=== PATIENT | female | born 1985 | race Caucasian/White ===

== ENCOUNTER 2017-03-29 09:56 | Day surgery (SDC) | payer BC ==
[~2017-03-29 09:56] MED LIST: Lactated Ringers 1,000 ML IV SCH
--- NOTE | 2017-03-29 11:16 | PCM.PREANE ---
Preanesthetic Assessment - Anesthesia/Transfusion/Family Hx Anesthesia History: Prior Anesthesia Reaction (slow awakening and shaking after anesthesia) Family History of Anesthesia Reaction: No Transfusion History: No Prior Transfusion(s) - Review of Systems General: No Symptoms Pulmonary: Cough (from the GERD?) Cardiovascular: No Symptoms Gastrointestinal: No Symptoms Neurological: No Symptoms Other: Reports: None - Physical Assessment NPO Status Date: 03/28/17 NPO Status Time: 23:00 O2 Sat by Pulse Oximetry: 97 Respiratory Rate: 16 Vital Signs: Last Vital Signs Temp 36.8 C 03/29/17 10:14 Pulse 88 03/29/17 10:14 Resp 16 03/29/17 10:14 BP 111/57 L 03/29/17 10:14 Pulse Ox 97 03/29/17 10:14 Height: 1.65 m Weight: 120.202 kg ASA Class: 3 Mental Status: Alert & Oriented x3 Airway Class: Mallampati = 2 Dentition: Reports: Broken Tooth/Teeth, Caries ROM/Head Extension: Full Lungs: Clear to Auscultation, Normal Respiratory Effort Cardiovascular: Regular Rate, Regular Rhythm - Lab Values: Laboratory Last Values Urine HCG, Qual NEGATIVE (NEGATIVE) 03/29/17 10:01 - Allergies Allergies/Adverse Reactions: Allergies Allergy/AdvReac Type Severity Reaction Status Date / Time No Known Allergies Allergy Verified 03/25/17 09:31 - Acknowledgements Anesthesia Type Planned: MAC Pt an Appropriate Candidate for the Planned Anesthesia: Yes Alternatives and Risks of Anesthesia Discussed w Pt/Guardian: Yes Pt/Guardian Understands and Agrees with Anesthesia Plan: Yes Additional Comments: PMH: morbid obesity, migraine, DM2, PCOS, anxiety, GERD, renal stones, chronic cough perhaps from her GERD. 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: Polycystic Ovaries Musculoskeletal History: Reports: Fracture Other Musculoskeletal History: hx of fx foot Neurological History: Reports: Other (See Below) Other Neuro History: 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" Psychiatric History: Reports: Anxiety, PTSD Endocrine/Metabolic History: Reports: Obesity/BMI 30+ Other Endocrine/Metabolic History: diet controlled diabetic Hematologic History: Reports: None Immunologic History: Reports: None Oncologic (Cancer) History: Reports: None Dermatologic History: Reports: None - Infectious Disease History Infectious Disease History: Reports: None - Past Surgical History Head Surgeries/Procedures: Reports: None HEENT Surgical History: Reports: Naso-Sinus Surgery Female Surgical History: Reports: Other (See Below) Other Female Surgeries/Procedures: Cystoscopy with stent insertion & stent removal Musculoskeletal Surgical History: Reports: None - SUBSTANCE USE Smoking Status *Q: Never Smoker Days Per Week of Alcohol Use: 0 Recreational Drug Use History: No - HOME MEDS Home Medications: Home Meds Ziprasidone HCl [Geodon] 40 mg PO BEDTIME 09/14/14 [History] Melatonin 5 mg PO BEDTIME 07/07/15 [History] Cholecalciferol (Vitamin D3) [Vitamin D] 2,000 unit PO DAILY 07/07/16 [History] ClonazePAM [KlonoPIN] 0.5 mg PO TID PRN 07/07/16 [History] Cyanocobalamin (Vitamin B12) [Vitamin B12] 2,500 mcg SL DAILY 07/07/16 [History] Vitamin B Complex 1 cap PO DAILY 07/07/16 [History] busPIRone [Buspar] 15 mg PO BID 07/07/16 [History] Benztropine [Cogentin] 1 mg PO BID 09/01/16 [History] Magnesium 400 mg PO BID 09/01/16 [History] Vitamin B6-pyridOXINE [Vitamin B6] 100 mg PO QAM 10/11/16 [History] Albuterol [IJD: Albuterol HFA] 1 puff INH ASDIRECTED PRN 03/25/17 [History] Pantoprazole Sodium [Protonix] 20 mg PO BID 03/25/17 [History] Potassium Chloride [Klor-Con M15] 15 meq PO DAILY 03/25/17 [History] - CURRENT (IN HOUSE) MEDS Current Meds: Current Medications Lactated Ringer's (Ringers, Lactated) 1,000 mls @ 125 mls/hr IV ASDIRECTED KENNEDY Last Admin: 03/29/17 10:15 Dose: 125 mls/hr
[2017-03-29] MEDS ORDERED: Propofol 200 MG/20 ML SDV ONE ×2 (12:16→13:06)
[2017-03-29] MEDS ORDERED: fentaNYL 100 MCG/2 ML SDV ONE (12:16)
[2017-03-29] MEDS ORDERED: Lidocaine 2% 5 ML SDV ONE (12:16)
[2017-03-29] MEDS ORDERED: Midazolam 1 MG/ML 2 ML SDV ONE (12:16)
--- NOTE | 2017-03-29 13:39 | PCM.OPNOTE ---
- General Post-Op/Procedure Note Date of Surgery/Procedure: 03/29/17 Operative Procedure(s): EGD w/ biopsy. Colonoscopy Pre Op Diagnosis: Progressive heartburn. Intermittent rectal bleeding Post-Op Diagnosis: Gastritis. Sigmoid diverticulosis Anesthesia Technique: MAC (ASA II) Primary Surgeon: Cash Manzo Condition: Good Free Text/Narrative:: Dictation [id number]. CPT CODE 84089/43980
[2017-03-29] MEDS ORDERED: Lactated Ringers 1,000 ML IV SCH (13:45)
[2017-03-29 14:07] VITALS: BP 119/77
--- NOTE | 2017-03-29 14:39 | PCM48HPAN ---
Post Anesthesia Note - EVALUATION WITHIN 48HRS OF ANESTHETIC Vital Signs in Normal Range: Yes Patient Participated in Evaluation: Yes Respiratory Function Stable: Yes Airway Patent: Yes Cardiovascular Function Stable: Yes Hydration Status Stable: Yes Pain Control Satisfactory: Yes Nausea and Vomiting Control Satisfactory: Yes Mental Status Recovered: Yes
--- NOTE | 2017-03-29 14:39 | PCM.POSTAN ---
POST ANESTHESIA ASSESSMENT - MENTAL STATUS Mental Status: Alert, Oriented - RESPIRATORY Respiratory Status: Respiratory Rate WNL, Airway Patent, O2 Saturation Stable - CARDIOVASCULAR CV Status: Pulse Rate WNL, Blood Pressure Stable - GASTROINTESTINAL GI Status: No Symptoms - POST OP HYDRATION Hydration Status: Adequate & Stable
--- NOTE | 2017-03-29 19:02 | OR ---
SURGEON: Cash Manzo M.D. DATE OF PROCEDURE: 03/29/2017 OPERATION PERFORMED: Esophagogastroduodenoscopy with biopsy. ANESTHESIA: MAC. ASA CLASSIFICATION: III. PREOPERATIVE DIAGNOSIS: Chronic heartburn progressive gastroesophageal reflux disease. POSTOPERATIVE DIAGNOSIS: Gastritis. DESCRIPTION OF PROCEDURE: The patient was taken to the endoscopy room and positioned on the endoscopy table in the supine position. Time-out was called for appropriate identification of patient and procedure. Monitored anesthesia care was provided. The bite block was placed between the patient's teeth. The gastroscope was inserted through the bite block into the mouth and advanced without difficulty through the esophagus and stomach, into the duodenum, where examination was carried out in a retrograde fashion. The duodenum shows no acute inflammatory changes or ulcerations. The stomach does show mild-to- moderate gastritis. Antral biopsies were obtained to look for the presence of Helicobacter pylori. The gastroscope was retroflexed to visualize the proximal stomach. No significant hiatal hernia was noted. No lesions are seen in the proximal stomach. The gastroscope was then straightened and slowly withdrawn. GE junction was well defined and shows no acute inflammatory changes or ulcerations. The esophagus demonstrated good contractility. As the scope was withdrawn, the vocal cords were visualized and noted to move symmetrically. There does appear to be some edema in the hypopharynx. The gastroscope was then removed with the patient having tolerated this portion of the procedure well. Following colonoscopy, she was taken to recovery room in stable condition. ARAM HUMMEL /[id number]
--- NOTE | 2017-03-29 19:05 | OR ---
SURGEON: Cash Manzo M.D. DATE OF PROCEDURE: 03/29/2017 OPERATION PERFORMED: Colonoscopy. ANESTHESIA: MAC. ASA CLASSIFICATION: III. PREOPERATIVE DIAGNOSIS: Intermittent rectal bleeding. POSTOPERATIVE DIAGNOSIS: Mild sigmoid diverticulosis. DESCRIPTION OF PROCEDURE: With the patient having completed esophagogastroduodenoscopy with biopsy, she was now turned to the left lateral decubitus position. The colonoscope was inserted into the rectum and advanced without difficulty to the cecum where the colonoscope was retroflexed to visualize the ascending colon from below. The colonoscope was then straightened and slowly withdrawn. The cecum, ascending colon, hepatic flexure, transverse colon, splenic flexure, and descending colon showed no tumors, polyps, diverticula, or angiodysplastic changes. Sigmoid colon demonstrated a few scattered diverticula. No stricture, spasm, or bleeding was noted. The colonoscope was withdrawn to the rectum and retroflexed to visualize the anal orifice from above. No acute hemorrhoidal changes were noted. The colonoscope was then straightened, the rectum aspirated, and the colonoscope removed. ARAM HUMMEL /[id number]
== END 2017-03-29 14:15 | disposition home or self-care (01) ==
LOC: MW.SDS 09:56
PROVIDERS: ATTEND Surgery
PROC: 0DJD8ZZ Inspection of Lower Intestinal Tract, Via Natural or Artificial Opening Endoscopic (ICD-10-PCS; principal; 2017-03-29)
PROC: 0DB68ZX Excision of Stomach, Via Natural or Artificial Opening Endoscopic, Diagnostic (ICD-10-PCS; 2017-03-29)
DX: K57.30 Diverticulosis of large intestine without perforation or abscess without bleeding (principal); K21.9 Gastro-esophageal reflux disease without esophagitis; F41.9 Anxiety disorder, unspecified; E66.9 Obesity, unspecified; E11.9 Type 2 diabetes mellitus without complications; E28.2 Polycystic ovarian syndrome; Z87.442 Personal history of urinary calculi; Z79.51 Long term (current) use of inhaled steroids; Z79.899 Other long term (current) drug therapy; Z98.890 Other specified postprocedural states; Z68.41 Body mass index [BMI] 40.0-44.9, adult
CPT/HCPCS: 43239; 45378; 81025; J2250; J3010; J7120; 00740; 88305; 88312; J2704

== ENCOUNTER 2017-04-27 20:31 | Emergency (ER) | payer BC, OTHER ==
[2017-04-27 20:41] VITALS: BP 160/94
--- NOTE | 2017-04-27 21:49 | EDM.PDOC ---
ED HPI GENERAL MEDICAL PROBLEM - General Chief Complaint: Cardiovascular Problem Stated Complaint: HIGH BLOOD PRESSURE Time Seen by Provider: 04/27/17 21:00 Source of Information: Reports: Patient History Limitations: Reports: No Limitations - History of Present Illness INITIAL COMMENTS - FREE TEXT/NARRATIVE: History of present illness: [32-year-old female comes in complaining of concerns of high blood pressure. Patient states she took her blood pressure home and it was high, she has felt some dizziness and feelings of pressure all over her body. Patient has been struggling with a cold and has been taking quite them bit of [id number] medication and is afraid she might have overdosed on Tylenol she is unable to determine how much she has taken. Patient has known anxiety disorder and takes medication for this and patient indicates this has triggered her anxiety. Patient can't remember what her blood pressure reading was but she indicated the bottom number was 105. Patient borderline hypertension on presentation. Review of systems: As per history of present illness and below otherwise all systems reviewed and negative. Past medical history: As per history of present illness and as reviewed below otherwise noncontributory. Surgical history: As per history of present illness and as reviewed below otherwise noncontributory. Social history: No reported history of drug or alcohol abuse. Family history: As per history of present illness and as reviewed below otherwise noncontributory. Physical exam: HEENT: Atraumatic, normocephalic, pupils reactive, negative for conjunctival pallor or scleral icterus, mucous membranes moist, throat clear, neck supple, nontender, trachea midline. Lungs: Clear to auscultation, breath sounds equal bilaterally, chest nontender. Heart: S1S2, regular, negative for clicks, rubs, or JVD. Abdomen: Soft, nondistended, nontender. Negative for masses or hepatosplenomegaly. Negative for costovertebral tenderness. Pelvis: Stable nontender. Genitourinary: Deferred. Rectal: Deferred. Extremities: Atraumatic, negative for cords or calf pain. Neurovascular unremarkable. Neuro: Awake, alert, oriented. Cranial nerves II through XII unremarkable. Cerebellum unremarkable. Motor and sensory unremarkable throughout. Exam nonfocal. Global assessment is benign save the subjective complaint as noted in the history of present illness Diagnostics: [CBC, CMP, EKG, amylase, lipase, acetaminophen level] Therapeutics: [] Impression: [#1 Anxiety #2 viral syndrome #3 Borderline hypertension] Plan: [Follow-up with PCP] Definitive disposition and diagnosis as appropriate pending reevaluation and review of above. - Related Data Allergies Allergy/AdvReac Type Severity Reaction Status Date / Time No Known Allergies Allergy Verified 04/27/17 20:38 Home Meds: Home Meds Ziprasidone HCl [Geodon] 40 mg PO BEDTIME 09/14/14 [History] Melatonin 5 mg PO BEDTIME 07/07/15 [History] Cholecalciferol (Vitamin D3) [Vitamin D] 2,000 unit PO DAILY 07/07/16 [History] ClonazePAM [KlonoPIN] 0.5 mg PO TID PRN 07/07/16 [History] Cyanocobalamin (Vitamin B12) [Vitamin B12] 2,500 mcg SL DAILY 07/07/16 [History] Vitamin B Complex 1 cap PO DAILY 07/07/16 [History] busPIRone [Buspar] 15 mg PO BID 07/07/16 [History] Benztropine [Cogentin] 1 mg PO BID 09/01/16 [History] Magnesium 400 mg PO BID 09/01/16 [History] Vitamin B6-pyridOXINE [Vitamin B6] 100 mg PO QAM 10/11/16 [History] Albuterol [IJD: Albuterol HFA] 1 puff INH ASDIRECTED PRN 03/25/17 [History] Pantoprazole Sodium [Protonix] 20 mg PO BID 03/25/17 [History] Potassium Chloride [Klor-Con M15] 15 meq PO DAILY 03/25/17 [History] Past Medical History - Past Health History Medical/Surgical History: Denies Medical/Surgical History HEENT History: Reports: Impaired Vision Other HEENT History: wears glasses Cardiovascular History: Reports: None Respiratory History: Reports: Asthma, Other (See Below) Other Respiratory History: chronic cough from GERD, uses albuterol inhaler Gastrointestinal History: Reports: GERD Genitourinary History: Reports: Renal Calculus Other Genitourinary History: surgery done in [place] for kidney stones 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: Polycystic 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 Musculoskeletal History: Reports: Fracture Other Musculoskeletal History: hx of fx foot Neurological History: Reports: Other (See Below) Other Neuro History: 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" Psychiatric History: Reports: Anxiety, PTSD Endocrine/Metabolic History: Reports: Obesity/BMI 30+ Other Endocrine/Metabolic History: diet controlled diabetic Hematologic History: Reports: None Immunologic History: Reports: None Oncologic (Cancer) History: Reports: None Dermatologic History: Reports: None - Infectious Disease History Infectious Disease History: Reports: Chicken Pox - Past Surgical History Head Surgeries/Procedures: Reports: None HEENT Surgical History: Reports: Naso-Sinus Surgery Female Surgical History: Reports: Other (See Below) Other Female Surgeries/Procedures: Cystoscopy with stent insertion & stent removal Musculoskeletal Surgical History: Reports: None Social & Family History - Family History Family Medical History: Noncontributory - Tobacco Use Smoking Status *Q: Never Smoker - Caffeine Use Caffeine Use: Reports: None - Alcohol Use Days Per Week of Alcohol Use: 0 - Recreational Drug Use Recreational Drug Use: No Drug Use in Last 12 Months: No ED ROS GENERAL - Review of Systems Review Of Systems: See Below (See history of present illness) ED EXAM, GENERAL - Physical Exam Exam: See Below (See history of present illness) Course - Vital Signs Last Recorded V/S: Last Vital Signs Temp 36.4 C 04/27/17 20:38 Pulse 84 04/27/17 20:38 Resp 18 04/27/17 20:38 BP 160/94 H 04/27/17 20:38 Pulse Ox 97 04/27/17 20:38 - Orders/Labs/Meds Labs: Laboratory Tests 04/27/17 04/27/17 Range/Units 21:18 21:18 WBC 12.44 H (4.0-11.0) K/uL RBC 4.84 (4.30-5.90) M/uL Hgb 14.9 (12.0-16.0) g/dL Hct 42.1 (36.0-46.0) % MCV 87.0 (80.0-98.0) fL MCH 30.8 (27.0-32.0) pg MCHC 35.4 (31.0-37.0) g/dL RDW Std Deviation 43.7 (28.0-62.0) fl RDW Coeff of José Miguel 14 (11.0-15.0) % Plt Count 336 (150-400) K/uL MPV 8.70 (7.40-12.00) fL Neut % (Auto) 64.9 (48.0-80.0) % Lymph % (Auto) 29.3 (16.0-40.0) % Sabine % (Auto) 5.1 (0.0-15.0) % Eos % (Auto) 0.6 (0.0-7.0) % Baso % (Auto) 0.1 (0.0-1.5) % Neut # (Auto) 8.1 H (1.4-5.7) K/uL Lymph # (Auto) 3.7 H (0.6-2.4) K/uL Sabine # (Auto) 0.6 (0.0-0.8) K/uL Eos # (Auto) 0.1 (0.0-0.7) K/uL Baso # (Auto) 0.0 (0.0-0.1) K/uL Nucleated RBC % 0.0 /100WBC Nucleated RBCs # 0 K/uL Sodium 140 (136-146) mmol/L Potassium 3.8 (3.5-5.1) mmol/L Chloride 109 (98-110) mmol/L Carbon Dioxide 20 L (21-31) mmol/L BUN 7 (6.0-23.0) mg/dL Creatinine 0.7 (0.6-1.5) mg/dL Est Cr Clr Drug Dosing 104.78 mL/min Estimated GFR (MDRD) > 60.0 ml/min Glucose 95 (60-110) mg/dL Calcium 9.2 (8.8-10.8) mg/dL Total Bilirubin 0.4 (0.1-1.5) mg/dL AST 38 (5-40) IU/L ALT 60 H (8-54) IU/L Alkaline Phosphatase 65 (40-150) Total Protein 7.5 (6.0-8.0) g/dL Albumin 3.8 (3.5-5.0) g/dL Globulin 3.7 H (2.0-3.5) g/dL Albumin/Globulin Ratio 1.0 L (1.3-2.8) Amylase 47 (10-90) U/L Lipase 20 (7-80) U/L Acetaminophen 3.6 ug/mL Departure - Departure Time of Disposition: 22:18 Disposition: Home, Self-Care 01 Condition: Good Clinical Impression: Anxiety, Hypertensive heart disease, Viral syndrome Referrals: Neema Pena NP [Primary Care Provider] - Forms: ED Department Discharge Additional Instructions: The following information is given to patients seen in the emergency department who are being discharged to home. This information is to outline your options for follow-up care. We provide all patients seen in our emergency department with a follow-up referral. The need for follow-up, as well as the timing and circumstances, are variable depending upon the specifics of your emergency department visit. If you don't have a primary care physician on staff, we will provide you with a referral. We always advise you to contact your personal physician following an emergency department visit to inform them of the circumstance of the visit and for follow-up with them and/or the need for any referrals to a consulting specialist. The emergency department will also refer you to a specialist when appropriate. This referral assures that you have the opportunity for follow-up care with a specialist. All of these measure are taken in an effort to provide you with optimal care, which includes your follow-up. Under all circumstances we always encourage you to contact your private physician who remains a resource for coordinating your care. When calling for follow-up care, please make the office aware that this follow-up is from your recent emergency room visit. If for any reason you are refused follow-up, please contact the [facility] Emergency Department at and asked to speak to the emergency department charge nurse. Take your [id number] cold remedies as directed by the package and no more be aware that he should take no more than 4 g of Tylenol from all sources a day or within a 24-hour period Follow-up with your PCP 1-2 days It is imperative that you have your PCP evaluate your blood pressure and give you interventions accordingly Return to ED as needed as discussed
[2017-04-27 21:54] LABS: ACETAMINOPHEN 3.6 ug/mL; CHLORIDE,CL 109 mmol/L (98-110); SODIUM,NA 140 mmol/L (136-146)
== END 2017-04-27 22:43 | disposition home or self-care (01) ==
LOC: MW.ED 20:31
DX: I11.9 Hypertensive heart disease without heart failure (principal); B34.9 Viral infection, unspecified; F41.9 Anxiety disorder, unspecified; J45.909 Unspecified asthma, uncomplicated; K21.9 Gastro-esophageal reflux disease without esophagitis; E66.9 Obesity, unspecified; Z98.890 Other specified postprocedural states; Z79.899 Other long term (current) drug therapy; Z68.41 Body mass index [BMI] 40.0-44.9, adult
CPT/HCPCS: 36415; 80053; 82150; 83690; 85025; 99284; G0480; 99283

== ENCOUNTER 2017-07-06 14:38 | Emergency (ER) | payer OTHER ==
--- NOTE | 2017-07-06 14:43 | EDM.PDOC ---
ED HPI GENERAL MEDICAL PROBLEM - General Chief Complaint: Chest Pain Stated Complaint: CHEST PAIN Time Seen by Provider: 07/06/17 14:43 Source of Information: Reports: Patient - History of Present Illness INITIAL COMMENTS - FREE TEXT/NARRATIVE: HISTORY AND PHYSICAL: History of present illness: []Patient with history of anxiety presents with chest pain off-and-on low-grade over the last 3 days 2 out of 10 pain no association with diaphoresis shortness of breath or radiation arm neck or jaw She has recently been diagnosed with a slight 2/6 systolic murmur and had 2-D echo performed at [facility] she will be following with cardiology concerning this in one month No fever nausea vomiting chills sweats no current chest pain shortness breath headache dizziness or palpitation no bowel or urine symptoms . Review of systems: As per history of present illness and below otherwise all systems reviewed and negative. Past medical history: As per history of present illness and as reviewed below otherwise noncontributory. Surgical history: As per history of present illness and as reviewed below otherwise noncontributory. Social history: No reported history of drug or alcohol abuse. Family history: As per history of present illness and as reviewed below otherwise noncontributory. Physical exam: HEENT: Atraumatic, normocephalic, pupils reactive, negative for conjunctival pallor or scleral icterus, mucous membranes moist, throat clear, neck supple, nontender, trachea midline. Lungs: Clear to auscultation, breath sounds equal bilaterally, chest nontender. Heart: S1S2, regular, negative for clicks, rubs, or JVD. 2/6 systolic murmur left sternal border Abdomen: Soft, nondistended, nontender. Negative for masses or hepatosplenomegaly. Negative for costovertebral tenderness. Pelvis: Stable nontender. Genitourinary: Deferred. Rectal: Deferred. Extremities: Atraumatic, negative for cords or calf pain. Neurovascular unremarkable. Neuro: Awake, alert, oriented. Cranial nerves II through XII unremarkable. Cerebellum unremarkable. Motor and sensory unremarkable throughout. Exam nonfocal. Diagnostics: []CBC CMP troponin EKG Therapeutics: []Continue current medication Impression: []2/6 systolic murmur-previously diagnosed with cardiology follow-up scheduled Chronic conditions at baseline Definitive disposition and diagnosis as appropriate pending reevaluation and review of above. Left Chest Pain Score (Numeric/FACES): 6 - Related Data Allergies Allergy/AdvReac Type Severity Reaction Status Date / Time No Known Allergies Allergy Verified 04/27/17 20:38 Home Meds: Home Meds Ziprasidone HCl [Geodon] 40 mg PO BEDTIME 09/14/14 [History] Melatonin 5 mg PO BEDTIME 07/07/15 [History] ClonazePAM [KlonoPIN] 0.5 mg PO TID PRN 07/07/16 [History] Vitamin B Complex 1 cap PO DAILY 07/07/16 [History] Magnesium 400 mg PO BID 09/01/16 [History] Vitamin B6-pyridOXINE [Vitamin B6] 100 mg PO QAM 10/11/16 [History] Albuterol [IJD: Albuterol HFA] 1 puff INH ASDIRECTED PRN 03/25/17 [History] Pantoprazole Sodium [Protonix] 20 mg PO BID 03/25/17 [History] Past Medical History - Past Health History Medical/Surgical History: Denies Medical/Surgical History HEENT History: Reports: Impaired Vision Other HEENT History: wears glasses Cardiovascular History: Reports: None Respiratory History: Reports: Asthma, Other (See Below) Other Respiratory History: chronic cough from GERD, uses albuterol inhaler Gastrointestinal History: Reports: GERD Genitourinary History: Reports: Renal Calculus Other Genitourinary History: surgery done in [place] for kidney stones per pt 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: Reports: Polycystic Ovaries Musculoskeletal History: Reports: Fracture Other Musculoskeletal History: hx of fx foot Neurological History: Reports: Other (See Below) Other Neuro History: 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" Psychiatric History: Reports: Anxiety, PTSD Endocrine/Metabolic History: Reports: Obesity/BMI 30+ Other Endocrine/Metabolic History: diet controlled diabetic Hematologic History: Reports: None Immunologic History: Reports: None Oncologic (Cancer) History: Reports: None Dermatologic History: Reports: None - Infectious Disease History Infectious Disease History: Reports: Chicken Pox - Past Surgical History Head Surgeries/Procedures: Reports: None HEENT Surgical History: Reports: Naso-Sinus Surgery Female Surgical History: Reports: Other (See Below) Other Female Surgeries/Procedures: Cystoscopy with stent insertion & stent removal Musculoskeletal Surgical History: Reports: None Social & Family History - Family History Family Medical History: Noncontributory - Tobacco Use Smoking Status *Q: Never Smoker - Caffeine Use Caffeine Use: Reports: None - Alcohol Use Days Per Week of Alcohol Use: 0 - Recreational Drug Use Recreational Drug Use: No Drug Use in Last 12 Months: No ED ROS GENERAL - Review of Systems Review Of Systems: ROS reveals no pertinent complaints other than HPI. ED EXAM, GENERAL - Physical Exam Exam: See Below Course - Vital Signs Last Recorded V/S: Last Vital Signs Temp 36.3 C 07/06/17 14:56 Pulse 90 07/06/17 14:56 Resp 14 07/06/17 14:56 BP 134/85 07/06/17 14:56 Pulse Ox 96 07/06/17 14:56 - Orders/Labs/Meds Orders: Active Orders 24 hr Category Date Time Status EKG 12 Lead [EKG Documentation Completion] [RC] STAT Care 07/06/17 14:43 Active COMPREHENSIVE METABOLIC PN,CMP [CHEM] Stat Lab 07/06/17 14:51 Results TROPONIN I [CHEM] Stat Lab 07/06/17 14:51 Results Labs: Laboratory Tests 07/06/17 07/06/17 Range/Units 14:51 14:51 WBC 13.37 H (4.0-11.0) K/uL RBC 4.78 (4.30-5.90) M/uL Hgb 14.4 (12.0-16.0) g/dL Hct 41.4 (36.0-46.0) % MCV 86.6 (80.0-98.0) fL MCH 30.1 (27.0-32.0) pg MCHC 34.8 (31.0-37.0) g/dL RDW Std Deviation 43.7 (28.0-62.0) fl RDW Coeff of José Miguel 14 (11.0-15.0) % Plt Count 361 (150-400) K/uL MPV 9.00 (7.40-12.00) fL Neut % (Auto) 75.4 (48.0-80.0) % Lymph % (Auto) 20.3 (16.0-40.0) % [place] % (Auto) 3.8 (0.0-15.0) % Eos % (Auto) 0.4 (0.0-7.0) % Baso % (Auto) 0.1 (0.0-1.5) % Neut # (Auto) 10.1 H (1.4-5.7) K/uL Lymph # (Auto) 2.7 H (0.6-2.4) K/uL [place] # (Auto) 0.5 (0.0-0.8) K/uL Eos # (Auto) 0.1 (0.0-0.7) K/uL Baso # (Auto) 0.0 (0.0-0.1) K/uL Nucleated RBC % 0.0 /100WBC Nucleated RBCs # 0 K/uL Troponin I < 0.10 (0.0-0.29) NG/ML Departure - Departure Time of Disposition: 15:20 Disposition: Home, Self-Care 01 Condition: Good Clinical Impression: Systolic murmur - Discharge Information Forms: ED Department Discharge Additional Instructions: Continue current home medications as directed Return if symptoms persist or worsen or new concerning symptoms develop Follow-up with cardiology as scheduled at the end of the month Follow-up with primary care in the interim as needed The following information is given to patients seen in the emergency department who are being discharged to home. This information is to outline your options for follow-up care. We provide all patients seen in our emergency department with a follow-up referral. The need for follow-up, as well as the timing and circumstances, are variable depending upon the specifics of your emergency department visit. If you don't have a primary care physician on staff, we will provide you with a referral. We always advise you to contact your personal physician following an emergency department visit to inform them of the circumstance of the visit and for follow-up with them and/or the need for any referrals to a consulting specialist. The emergency department will also refer you to a specialist when appropriate. This referral assures that you have the opportunity for follow-up care with a specialist. All of these measure are taken in an effort to provide you with optimal care, which includes your follow-up. Under all circumstances we always encourage you to contact your private physician who remains a resource for coordinating your care. When calling for follow-up care, please make the office aware that this follow-up is from your recent emergency room visit. If for any reason you are refused follow-up, please contact the [facility] emergency department at and asked to speak to the emergency department charge nurse. - My Orders Last 24 Hours: My Active Orders 07/06/17 14:43 EKG 12 Lead [EKG Documentation Completion] [RC] STAT 07/06/17 14:51 COMPREHENSIVE METABOLIC PN,CMP [CHEM] Stat TROPONIN I [CHEM] Stat - Assessment/Plan Last 24 Hours: My Active Orders 07/06/17 14:43 EKG 12 Lead [EKG Documentation Completion] [RC] STAT 07/06/17 14:51 COMPREHENSIVE METABOLIC PN,CMP [CHEM] Stat TROPONIN I [CHEM] Stat
[2017-07-06 15:24] LABS: CHLORIDE,CL 105 mmol/L (98-110); SODIUM,NA 138 mmol/L (136-146)
[2017-07-06 16:35] VITALS: BP 133/83
--- NOTE | 2017-07-06 16:42 | CR ---
EXAM DATE: 07/06/17 PATIENT'S AGE: 32 Patient: VEENA ANDERSON Facility: [place], [place] Site . Site : 1985 Study: XRay Chest ,[id number]/14/2017 4:00:37 PM Ordering Physician: Davie Adair Final Report: INDICATION: COUGH TECHNIQUE: Chest 2 views COMPARISON: November 06, 2013 FINDINGS: Cardiovascular and mediastinum: Heart size and vasculature are normal in caliber and appearance. Mediastinum is within normal limits. Lungs and pleural spaces: No focal consolidation. No sign of pleural effusion. No pneumothorax. Bones and soft tissues: No significant findings. IMPRESSION: No acute cardiopulmonary disease. Dictated by Pawel Freeman MD @ 07/06/2017 4:06:07 PM Dictated by: Pawel Freeman MD @ 07/06/2017 16:06:16 (Electronic Signature) Report Signed by Proxy. [facility] HOSPITALSharona
== END 2017-07-06 16:35 | disposition home or self-care (01) ==
LOC: MW.ED 14:38
DX: R01.1 Cardiac murmur, unspecified (principal); Z79.899 Other long term (current) drug therapy
CPT/HCPCS: 36415; 71020; 71020-26; 80053; 84484; 85025; 93005; 99285; 99285-25

== ENCOUNTER 2018-03-03 22:07 | Emergency (ER) | payer SELFPAY ==
[2018-03-03] MEDS ORDERED: Sodium Chloride 0.9% 1,000 ML IV ONE (22:35)
[2018-03-03] MEDS ORDERED: Ondansetron 4 MG/2 ML SDV IVPUSH ONE (22:35)
[2018-03-03] MEDS ORDERED: Ketorolac 30 MG/ML SDV IVPUSH ONE (22:35)
--- NOTE | 2018-03-03 22:39 | EDM.PDOC ---
ED HPI GENERAL MEDICAL PROBLEM - General Chief Complaint: Flank Pain Stated Complaint: [facility] Time Seen by Provider: 03/03/18 22:34 - History of Present Illness INITIAL COMMENTS - FREE TEXT/NARRATIVE: HISTORY AND PHYSICAL: History of present illness: Patient is a 33-year-old female presents concern of right-sided abdominal pain scheme on 2 hours prior to arrival she has history of urolithiasis Review of systems: As per history of present illness and below otherwise all systems reviewed and negative. Past medical history: As per history of present illness and as reviewed below otherwise noncontributory. Surgical history: As per history of present illness and as reviewed below otherwise noncontributory. Social history: No reported history of drug or alcohol abuse. Family history: As per history of present illness and as reviewed below otherwise noncontributory. Physical exam: HEENT: Atraumatic, normocephalic, pupils reactive, negative for conjunctival pallor or scleral icterus, mucous membranes moist, throat clear, neck supple, nontender, trachea midline. Lungs: Clear to auscultation, breath sounds equal bilaterally, chest nontender. Heart: S1S2, regular, negative for clicks, rubs, or JVD. Abdomen: Soft, nondistended, no localized tenderness. Negative for masses or hepatosplenomegaly. Negative for costovertebral tenderness. Pelvis: Stable nontender. Genitourinary: Deferred. Rectal: Deferred. Extremities: Atraumatic, negative for cords or calf pain. Neurovascular unremarkable. Neuro: Awake, alert, oriented. Cranial nerves II through XII unremarkable. Cerebellum unremarkable. Motor and sensory unremarkable throughout. Exam nonfocal. Diagnostics: CBC CMP UA lipase CT abdomen and pelvis Therapeutics: Saline 1 L bolus Toradol 30 mg IV Impression: #1 right-sided abdominal pain Definitive disposition and diagnosis as appropriate pending reevaluation and review of above. Right Abdomen Pain Score (Numeric/FACES): 8 - Related Data Allergies Allergy/AdvReac Type Severity Reaction Status Date / Time No Known Allergies Allergy Verified 04/27/17 20:38 Home Meds: Home Meds Ziprasidone HCl [Geodon] 40 mg PO BEDTIME 09/14/14 [History] Melatonin 5 mg PO BEDTIME 07/07/15 [History] ClonazePAM [KlonoPIN] 0.5 mg PO TID PRN 07/07/16 [History] Albuterol [IJD: Albuterol HFA] 1 puff INH ASDIRECTED PRN 03/25/17 [History] Pantoprazole Sodium [Protonix] 20 mg PO BID 03/25/17 [History] Cholecalciferol (Vitamin D3) [Vitamin D3] 5,000 unit PO DAILY 03/03/18 [History] Fluticasone Propionate [Flonase] 16 gm NS DAILY 03/03/18 [History] Progesterone,Micronized [Progesterone] 100 mg PO DAILY 03/03/18 [History] busPIRone [Buspar] 15 mg PO BID 03/03/18 [History] Past Medical History - Past Health History Medical/Surgical History: Denies Medical/Surgical History HEENT History: Reports: Impaired Vision Other HEENT History: wears glasses Cardiovascular History: Reports: None Other Cardiovascular History: "Leaking heart valve" Respiratory History: Reports: Asthma, Other (See Below) Other Respiratory History: chronic cough from GERD, uses albuterol inhaler Gastrointestinal History: Reports: GERD Genitourinary History: Reports: Renal Calculus Other Genitourinary History: surgery done in [place] for kidney stones per pt [employer] 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 History: Reports: Polycystic Ovaries Musculoskeletal History: Reports: Fracture Other Musculoskeletal History: hx of fx foot Neurological History: Reports: Other (See Below) Other Neuro History: 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" Psychiatric History: Reports: Anxiety, PTSD Endocrine/Metabolic History: Reports: Obesity/BMI 30+ Other Endocrine/Metabolic History: diet controlled diabetic Hematologic History: Reports: None Immunologic History: Reports: None Oncologic (Cancer) History: Reports: None Dermatologic History: Reports: None - Infectious Disease History Infectious Disease History: Reports: Chicken Pox - Past Surgical History Head Surgeries/Procedures: Reports: None HEENT Surgical History: Reports: Naso-Sinus Surgery Female Surgical History: Reports: Other (See Below) Other Female Surgeries/Procedures: Cystoscopy with stent insertion & stent removal Musculoskeletal Surgical History: Reports: None Social & Family History - Family History Family Medical History: Noncontributory - Tobacco Use Smoking Status *Q: Never Smoker - Caffeine Use Caffeine Use: Reports: None ED ROS GENERAL - Review of Systems Review Of Systems: ROS reveals no pertinent complaints other than HPI. ED EXAM, GENERAL - Physical Exam Exam: See Below (See dictation) Course - Vital Signs Last Recorded V/S: Last Vital Signs Temp 35.8 C 03/03/18 22:38 Pulse 101 H 03/03/18 22:38 Resp 22 H 03/03/18 22:38 BP 137/92 H 03/03/18 22:38 Pulse Ox 98 03/03/18 22:38 - Orders/Labs/Meds Orders: Active Orders 24 hr Category Date Time Status Abdomen Pelvis wo Cont [CT] Stat Exams 03/03/18 22:35 Taken UA W/MICROSCOPIC [URIN] Stat Lab 03/03/18 22:28 Ordered Labs: Laboratory Tests 03/03/18 03/03/18 03/03/18 Range/Units 22:26 22:26 22:26 WBC 14.72 H (4.0-11.0) K/uL RBC 5.22 (4.30-5.90) M/uL Hgb 16.0 (12.0-16.0) g/dL Hct 44.7 (36.0-46.0) % MCV 85.6 (80.0-98.0) fL MCH 30.7 (27.0-32.0) pg MCHC 35.8 (31.0-37.0) g/dL RDW Std Deviation 43.1 (28.0-62.0) fl RDW Coeff of José Miguel 14 (11.0-15.0) % Plt Count 386 (150-400) K/uL MPV 9.10 (7.40-12.00) fL Neut % (Auto) 61.2 (48.0-80.0) % Lymph % (Auto) 33.6 (16.0-40.0) % [place] % (Auto) 4.5 (0.0-15.0) % Eos % (Auto) 0.6 (0.0-7.0) % Baso % (Auto) 0.1 (0.0-1.5) % Neut # (Auto) 9.0 H (1.4-5.7) K/uL Lymph # (Auto) 4.9 H (0.6-2.4) K/uL [place] # (Auto) 0.7 (0.0-0.8) K/uL Eos # (Auto) 0.1 (0.0-0.7) K/uL Baso # (Auto) 0.0 (0.0-0.1) K/uL Nucleated RBC % 0.0 /100WBC Nucleated RBCs # 0 K/uL Sodium 137 (136-145) mmol/L Potassium 3.9 (3.5-5.1) mmol/L Chloride 101 (98-107) mmol/L Carbon Dioxide 23.0 (21.0-32.0) mmol/L BUN 11 (7.0-18.0) mg/dL Creatinine 1.1 H (0.6-1.0) mg/dL Est Cr Clr Drug Dosing 66.07 mL/min Estimated GFR (MDRD) 57.6 ml/min Glucose 138 H (74-106) mg/dL Calcium 9.5 (8.5-10.1) mg/dL Total Bilirubin 0.6 (0.2-1.0) mg/dL AST 42 H (15-37) IU/L ALT 75 H (14-63) IU/L Alkaline Phosphatase 66 (46-116) U/L Total Protein 8.1 (6.4-8.2) g/dL Albumin 3.8 (3.4-5.0) g/dL Globulin 4.3 H (2.0-3.5) g/dL Albumin/Globulin Ratio 0.9 L (1.3-2.8) Lipase 142 (73-393) U/L HCG, Qual NEGATIVE (NEG) Urine Color Urine Appearance Urine pH (5.0-8.0) Ur Specific [place] (1.001-1.035) Urine Protein (NEGATIVE) mg/dL Urine Glucose (UA) (NEGATIVE) mg/dL Urine Ketones (NEGATIVE) mg/dL Urine Occult Blood (NEGATIVE) Urine Nitrite (NEGATIVE) Urine Bilirubin (NEGATIVE) Urine Urobilinogen (<2.0) EU/dL Ur Leukocyte Esterase (NEGATIVE) Urine RBC (0-2/HPF) Urine WBC (0-5/HPF) Ur Epithelial Cells (NONE-FEW) Urine Bacteria (NEGATIVE) Urine Mucus (NONE-MOD) 03/03/18 Range/Units 22:28 WBC (4.0-11.0) K/uL RBC (4.30-5.90) M/uL Hgb (12.0-16.0) g/dL Hct (36.0-46.0) % MCV (80.0-98.0) fL MCH (27.0-32.0) pg MCHC (31.0-37.0) g/dL RDW Std Deviation (28.0-62.0) fl RDW Coeff of José Miguel (11.0-15.0) % Plt Count (150-400) K/uL MPV (7.40-12.00) fL Neut % (Auto) (48.0-80.0) % Lymph % (Auto) (16.0-40.0) % [place] % (Auto) (0.0-15.0) % Eos % (Auto) (0.0-7.0) % Baso % (Auto) (0.0-1.5) % Neut # (Auto) (1.4-5.7) K/uL Lymph # (Auto) (0.6-2.4) K/uL [place] # (Auto) (0.0-0.8) K/uL Eos # (Auto) (0.0-0.7) K/uL Baso # (Auto) (0.0-0.1) K/uL Nucleated RBC % /100WBC Nucleated RBCs # K/uL Sodium (136-145) mmol/L Potassium (3.5-5.1) mmol/L Chloride (98-107) mmol/L Carbon Dioxide (21.0-32.0) mmol/L BUN (7.0-18.0) mg/dL Creatinine (0.6-1.0) mg/dL Est Cr Clr Drug Dosing mL/min Estimated GFR (MDRD) ml/min Glucose (74-106) mg/dL Calcium (8.5-10.1) mg/dL Total Bilirubin (0.2-1.0) mg/dL AST (15-37) IU/L ALT (14-63) IU/L Alkaline Phosphatase (46-116) U/L Total Protein (6.4-8.2) g/dL Albumin (3.4-5.0) g/dL Globulin (2.0-3.5) g/dL Albumin/Globulin Ratio (1.3-2.8) Lipase (73-393) U/L HCG, Qual (NEG) Urine Color YELLOW Urine Appearance CLEAR Urine pH 6.0 (5.0-8.0) Ur Specific [place] <= 1.005 (1.001-1.035) Urine Protein NEGATIVE (NEGATIVE) mg/dL Urine Glucose (UA) NEGATIVE (NEGATIVE) mg/dL Urine Ketones NEGATIVE (NEGATIVE) mg/dL Urine Occult Blood TRACE-LYSED (NEGATIVE) Urine Nitrite NEGATIVE (NEGATIVE) Urine Bilirubin NEGATIVE (NEGATIVE) Urine Urobilinogen 0.2 (<2.0) EU/dL Ur Leukocyte Esterase NEGATIVE (NEGATIVE) Urine RBC 0-1 (0-2/HPF) Urine WBC 0-1 (0-5/HPF) Ur Epithelial Cells OCCASIONAL (NONE-FEW) Urine Bacteria RARE (NEGATIVE) Urine Mucus LIGHT (NONE-MOD) Meds: Medications Discontinued Medications Generic Name Dose Route Start Last Admin Trade Name Freq PRN Reason Stop Dose Admin Sodium Chloride 1,000 mls @ 999 mls/hr 03/03/18 22:35 03/03/18 22:46 Normal Saline IV 03/03/18 23:35 999 mls/hr STAT ONE Administration Ketorolac Tromethamine 30 mg 03/03/18 22:35 03/03/18 22:47 Toradol IVPUSH 03/03/18 22:36 30 mg ONETIME ONE Administration Ondansetron HCl 4 mg 03/03/18 22:35 03/03/18 22:49 Zofran IVPUSH 03/03/18 22:36 4 mg ONETIME ONE Administration Departure - Departure Time of Disposition: 00:04 Disposition: Home, Self-Care 01 Condition: Good Clinical Impression: Abdominal pain - Discharge Information Referrals: PCP,None [Primary Care Provider] - Forms: ED Department Discharge Additional Instructions: The following information is given to patients seen in the emergency department who are being discharged to home. This information is to outline your options for follow-up care. We provide all patients seen in our emergency department with a follow-up referral. The need for follow-up, as well as the timing and circumstances, are variable depending upon the specifics of your emergency department visit. If you don't have a primary care physician on staff, we will provide you with a referral. We always advise you to contact your personal physician following an emergency department visit to inform them of the circumstance of the visit and for follow-up with them and/or the need for any referrals to a consulting specialist. The emergency department will also refer you to a specialist when appropriate. This referral assures that you have the opportunity for followup care with a specialist. All of these measure are taken in an effort to provide you with optimal care, which includes your followup. Under all circumstances we always encourage you to contact your private physician who remains a resource for coordinating your care. When calling for followup care, please make the office aware that this follow-up is from your recent emergency room visit. If for any reason you are refused follow-up, please contact the [facility] emergency department at and asked to speak to the emergency department charge nurse. Follow-up primary medical doctor push fluids clear liquids as directed 24 hours return as needed as discussed - My Orders Last 24 Hours: My Active Orders 03/03/18 22:28 UA W/MICROSCOPIC [URIN] Stat 03/03/18 22:35 Abdomen Pelvis wo Cont [CT] Stat - Assessment/Plan Last 24 Hours: My Active Orders 03/03/18 22:28 UA W/MICROSCOPIC [URIN] Stat 03/03/18 22:35 Abdomen Pelvis wo Cont [CT] Stat
[2018-03-04 00:19] VITALS: BP 126/78
--- NOTE | 2018-03-04 14:14 | CT ---
EXAM DATE: 03/03/18 PATIENT'S AGE: 33 Patient: VEENA ANDERSON Facility: [place], [place] Site . Site : 1985 Study: CT Abdomen/Pelvis wo cont [id number]/12/2018 11:43:34 PM Ordering Physician: Kevin Hastings Final Report: INDICATION: RIGHT SIDED FLANK PAIN FOR 3 HOURS WITH HX OF STONES. CT ABDOMEN AND PELVIS WITHOUT CONTRAST TECHNIQUE: Multidetector CT imaging was performed through the abdomen and pelvis without intravenous contrast administration. Coronal and sagittal reconstructions were generated. COMPARISON: 10/11/2016 CT abdomen and pelvis. FINDINGS: Lower chest: Lung bases are clear. Liver: Diffuse fatty infiltration of the liver. Gallbladder and bile ducts: Question of tiny gallstone in the dependent portion of the gallbladder on image 67 of series 201. No evidence of cholecystitis. No biliary dilation identified. Pancreas: Unremarkable. Spleen: Normal. Adrenals: No nodules or masses. Kidneys, ureters, and urinary bladder: Small bilateral nonobstructing intrarenal stones, 1 in each kidney, similar to the previous exam. No ureteral stones or hydronephrosis. No bladder mass or definite wall thickening. Gastrointestinal tract: Normal caliber small bowel without wall thickening. The appendix is normal. A few scattered colon diverticula, without evidence of diverticulitis. Vascular structures: Normal for age. Peritoneum: No free air, abscess, or significant free fluid. Lymph nodes: No pathologically enlarged nodes identified. Reproductive organs: No pelvic masses. Bones: Normal for age. IMPRESSION: 1. No acute abnormality identified. No ureteral stones or hydronephrosis. No definite cause for the patient`s symptoms is demonstrated. 2. Small bilateral nonobstructing intrarenal stones, similar to the previous exam. 3. Nonacute additional findings as detailed above. AIDA ESCOBEDO MD [employer] Dictated by Talib Escobedo MD @ 03/03/2018 11:57:49 PM Dictated by: Talib Escobedo MD @ 03/03/2018 23:59:14 (Electronic Signature) Report Signed by Proxy. [facility]
== END 2018-03-03 23:55 | disposition home or self-care (01) ==
LOC: MW.ED 22:07
DX: R10.9 Unspecified abdominal pain (principal); K21.9 Gastro-esophageal reflux disease without esophagitis; Z79.899 Other long term (current) drug therapy
CPT/HCPCS: 36415; 74176; 80053; 81001; 83690; 84703; 85025; 96361; 96374; 96375; 99284; J1885; J2405; J7040

== ENCOUNTER 2022-11-26 19:59 | Emergency (ER) | payer BC ==
[2022-11-26 21:39] LABS: BLOOD UREA NITROGEN,BUN 6 mg/dL (7.0-18.0); CARBON DIOXIDE,CO2 28.4 mmol/L (21.0-32.0); CHLORIDE,CL 100 mmol/L (98-107); GLUCOSE RANDOM 129 mg/dL (74-106); POTASSIUM,K 3.5 mmol/L (3.5-5.1); SODIUM,NA 139 mmol/L (136-145)
[2022-11-26 21:40] LABS: ESTIMATED GFR 98 mL/min (>60)
[2022-11-26 22:59] VITALS: BP 141/89; PULSE 91
== END 2022-11-26 22:52 | disposition home or self-care (01) ==
LOC: MW.ED 19:59
DX: R07.89 Other chest pain (principal); R00.2 Palpitations; J45.909 Unspecified asthma, uncomplicated; K21.9 Gastro-esophageal reflux disease without esophagitis; E66.9 Obesity, unspecified; Z79.899 Other long term (current) drug therapy
CPT/HCPCS: 36415; 71045; 71045-26; 80053; 84484; 84703; 85025; 93005; 99285

== ENCOUNTER 2023-07-14 16:56 | Emergency (ER) | payer BC ==
[2023-07-14] MEDS ORDERED: Sodium Chloride 0.9% 1,000 ML IV ONE (17:24)
[2023-07-14] MEDS ORDERED: Diphtheria,Pertussis(Acell),Tetanus Vaccine 0.5 ML Syringe IM ONE (17:24)
[2023-07-14 17:48] LABS: BASOPHILS ABSOLUTE AUTO 0.02 K/uL (0.00-0.20); BASOPHILS PERCENT AUTO 0.1 % (0.0-1.0); EOSINOPHILS PERCENT AUTO 0.7 % (0.0-6.0); HEMATOCRIT 41.4 % (37.0-47.0); HEMOGLOBIN 14.5 g/dL (12.0-16.0); IMMATURE GRAN ABSOLUTE AUTO 0.07 K/uL (0.00-0.05); IMMATURE GRAN PERCENT AUTO 0.5 % (0.0-0.4); LYMPHOCYTES ABSOLUTE AUTO 2.28 K/uL (1.00-4.80); LYMPHOCYTES PERCENT AUTO 15.5 % (24.0-44.0); MEAN CORPUSCULAR HEMOGLOBIN 30.4 pg (28.0-32.0); MEAN CORPUSCULAR VOLUME 86.8 fL (83.0-99.0); MONOCYTES ABSOLUTE AUTO 0.53 K/uL (0.00-0.80); MONOCYTES PERCENT AUTO 3.6 % (0.0-8.0); NEUTROPHILS ABSOLUTE AUTO 11.73 K/uL (1.80-7.70); NEUTROPHILS PERCENT AUTO 79.6 % (41.0-71.0); PLATELET COUNT,PLT 386 K/uL (150-400); RED BLOOD CELL COUNT 4.77 M/uL (4.10-5.30); WHITE BLOOD CELL COUNT,WBC 14.73 K/uL (3.9-11.3)
[2023-07-14 18:11] LABS: A/G RATIO 0.8 (0.9-1.6); ALBUMIN 3.5 g/dL (3.4-5.0); BILIRUBIN TOTAL 0.6 mg/dL (0.2-1.0); CALCIUM 9.2 mg/dL (8.5-10.1); CARBON DIOXIDE,CO2 26.9 mmol/L (21.0-32.0); EST CRCL DRUG DOSING (CG) 69.31 mL/min; POTASSIUM,K 3.5 mmol/L (3.5-5.1); PROTEIN TOTAL,TP 8.1 g/dL (6.4-8.2)
[2023-07-14 19:18] LABS: APPEARANCE,URINE CLEAR; BILIRUBIN,URINE NEGATIVE (NEGATIVE); COLOR,URINE YELLOW; GLUCOSE,URINE NEGATIVE (NEGATIVE); KETONES,URINE NEGATIVE (NEGATIVE); LEUKOCYTE ESTERASE,URINE NEGATIVE (NEGATIVE); NITRITE,URINE NEGATIVE (NEGATIVE); OCCULT BLOOD,URINE TRACE-INTACT (NEGATIVE); PROTEIN,URINE NEGATIVE (NEGATIVE); UROBILINOGEN,URINE 0.2 EU/dL (<2.0)
[2023-07-14 19:27] LABS: BACTERIA,URINE RARE (NEGATIVE); EPITHELIAL CELLS,URINE RARE (NONE-FEW); RBC,URINE 0-2 (0-2/HPF); WBC,URINE 0-2 (0-5/HPF)
[2023-07-14 20:00] VITALS: BP 122/77; PULSE 88
== END 2023-07-14 19:59 | disposition home or self-care (01) ==
LOC: MW.ED 16:56
DX: R55 Syncope and collapse (principal); D72.829 Elevated white blood cell count, unspecified; J32.9 Chronic sinusitis, unspecified; I10 Essential (primary) hypertension; K21.9 Gastro-esophageal reflux disease without esophagitis; E11.9 Type 2 diabetes mellitus without complications; E66.9 Obesity, unspecified; Z79.899 Other long term (current) drug therapy; Z68.41 Body mass index [BMI] 40.0-44.9, adult
CPT/HCPCS: 36415; 70450; 71045; 80053; 81001; 84484; 85025; 90471; 90715; 93005; 96360; 99285; J7030

== ENCOUNTER 2023-09-02 07:20 | Emergency (ER) | payer BC ==
[2023-09-02] MEDS ORDERED: Sodium Chloride 0.9% 10 ML Syringe FLUSH PRN (07:23)
[2023-09-02] MEDS ORDERED: Sodium Chloride 0.9% 2.5 ML Syringe FLUSH PRN (07:23)
[2023-09-02] MEDS ORDERED: Sodium Chloride 0.9% 1,000 ML IV STA (07:42)
[2023-09-02 08:00] LABS: BASOPHILS ABSOLUTE AUTO 0.01 K/uL (0.00-0.20); BASOPHILS PERCENT AUTO 0.2 % (0.0-1.0); EOSINOPHILS ABSOLUTE AUTO 0.01 K/uL (0.00-0.45); EOSINOPHILS PERCENT AUTO 0.2 % (0.0-6.0); HEMATOCRIT 40.4 % (37.0-47.0); HEMOGLOBIN 14.5 g/dL (12.0-16.0); IMMATURE GRAN ABSOLUTE AUTO 0.02 K/uL (0.00-0.05); IMMATURE GRAN PERCENT AUTO 0.3 % (0.0-0.4); LYMPHOCYTES ABSOLUTE AUTO 1.61 K/uL (1.00-4.80); LYMPHOCYTES PERCENT AUTO 24.5 % (24.0-44.0); MEAN CORPUSCULAR HEMOGLOBIN 30.2 pg (28.0-32.0); MEAN CORPUSCULAR HGB CONC 35.9 g/dL (32.0-36.0); MEAN CORPUSCULAR VOLUME 84.2 fL (83.0-99.0); MEAN PLATELET VOLUME 8.9 fL (9.4-12.3); MONOCYTES ABSOLUTE AUTO 0.41 K/uL (0.00-0.80); MONOCYTES PERCENT AUTO 6.3 % (0.0-8.0); NEUTROPHILS PERCENT AUTO 68.5 % (41.0-71.0); PLATELET COUNT,PLT 307 K/uL (150-400); WHITE BLOOD CELL COUNT,WBC 6.56 K/uL (3.9-11.3)
[2023-09-02 08:15] LABS: BILIRUBIN,URINE NEGATIVE (NEGATIVE); GLUCOSE,URINE NEGATIVE (NEGATIVE); KETONES,URINE NEGATIVE (NEGATIVE); LEUKOCYTE ESTERASE,URINE NEGATIVE (NEGATIVE); NITRITE,URINE NEGATIVE (NEGATIVE); OCCULT BLOOD,URINE TRACE-INTACT (NEGATIVE); PROTEIN,URINE NEGATIVE (NEGATIVE); UROBILINOGEN,URINE 0.2 EU/dL (<2.0)
[2023-09-02 08:22] LABS: APPEARANCE,URINE CLEAR; COLOR,URINE YELLOW
[2023-09-02 08:23] LABS: RBC,URINE 0-2 (0-2/HPF); WBC,URINE 0-1 (0-5/HPF)
[2023-09-02 08:39] LABS: A/G RATIO 0.8 (0.9-1.6); ALBUMIN 3.1 g/dL (3.4-5.0); BILIRUBIN TOTAL 0.4 mg/dL (0.2-1.0); CALCIUM 8.4 mg/dL (8.5-10.1); CARBON DIOXIDE,CO2 27.7 mmol/L (21.0-32.0); CREATININE 0.9 mg/dL (0.6-1.0); EST CRCL DRUG DOSING (CG) 77.01 mL/min; MAGNESIUM 1.5 mg/dL (1.8-2.4); POTASSIUM,K 3.1 mmol/L (3.5-5.1); PROTEIN TOTAL,TP 7.2 g/dL (6.4-8.2)
[2023-09-02] MEDS ORDERED: Lidocaine 4% 1 each Patch TOP PRN (08:40)
[2023-09-02] MEDS ORDERED: Potassium Chloride 20 MEQ Tab.ER PO ONE ×2 (08:58→10:03)
[2023-09-02] MEDS ORDERED: Magnesium Sulfate (4.06 MEQ/ML) 1 GM/2 ML SDV IM ONE (08:58)
[2023-09-02] MEDS ORDERED: Magnesium Sulfate (4.06 MEQ/ML) 5 GM/10 ML SDV IV ONE (09:01)
[2023-09-02] MEDS ORDERED: Magnesium Sulfate/Water 2 GM in Premix Bag 1 BAG IV ONE (09:15)
[2023-09-02 11:19] VITALS: BP 113/60; PULSE 98
== END 2023-09-02 11:18 | disposition home or self-care (01) ==
LOC: MW.ED 07:20
DX: R55 Syncope and collapse (principal); I10 Essential (primary) hypertension; K21.9 Gastro-esophageal reflux disease without esophagitis; J45.909 Unspecified asthma, uncomplicated; E11.9 Type 2 diabetes mellitus without complications; Z79.899 Other long term (current) drug therapy; Z79.84 Long term (current) use of oral hypoglycemic drugs
CPT/HCPCS: 36415; 71045; 80053; 81001; 81025; 83735; 84484; 85025; 93005; 96361; 96365; 96366; 99284; A9270; J3475; J3490; J7030

== ENCOUNTER 2023-09-24 12:46 | Emergency (ER) | payer BC ==
[2023-09-24] MEDS ORDERED: Sodium Chloride 0.9% 2.5 ML Syringe FLUSH PRN (13:40)
[2023-09-24] MEDS ORDERED: Sodium Chloride 0.9% 10 ML Syringe FLUSH PRN (13:40)
[2023-09-24] MEDS ORDERED: Sodium Chloride 0.9% 1,000 ML IV STA (13:44)
[2023-09-24] MEDS ORDERED: Meclizine 25 MG Tab PO STA (13:44)
[2023-09-24 14:11] LABS: APPEARANCE,URINE CLEAR; BILIRUBIN,URINE NEGATIVE (NEGATIVE); GLUCOSE,URINE NEGATIVE (NEGATIVE); KETONES,URINE NEGATIVE (NEGATIVE); LEUKOCYTE ESTERASE,URINE NEGATIVE (NEGATIVE); NITRITE,URINE NEGATIVE (NEGATIVE); OCCULT BLOOD,URINE NEGATIVE (NEGATIVE); PROTEIN,URINE NEGATIVE (NEGATIVE); UROBILINOGEN,URINE 0.2 EU/dL (<2.0)
[2023-09-24 14:14] LABS: COLOR,URINE STRAW
[2023-09-24 14:45] LABS: BASOPHILS ABSOLUTE AUTO 0.02 K/uL (0.00-0.20); BASOPHILS PERCENT AUTO 0.2 % (0.0-1.0); EOSINOPHILS ABSOLUTE AUTO 0.09 K/uL (0.00-0.45); EOSINOPHILS PERCENT AUTO 0.8 % (0.0-6.0); HEMATOCRIT 38.8 % (37.0-47.0); HEMOGLOBIN 13.7 g/dL (12.0-16.0); IMMATURE GRAN ABSOLUTE AUTO 0.03 K/uL (0.00-0.05); IMMATURE GRAN PERCENT AUTO 0.3 % (0.0-0.4); LYMPHOCYTES ABSOLUTE AUTO 3.07 K/uL (1.00-4.80); LYMPHOCYTES PERCENT AUTO 26.5 % (24.0-44.0); MEAN CORPUSCULAR HEMOGLOBIN 30.1 pg (28.0-32.0); MEAN CORPUSCULAR HGB CONC 35.3 g/dL (32.0-36.0); MEAN CORPUSCULAR VOLUME 85.3 fL (83.0-99.0); MEAN PLATELET VOLUME 9.2 fL (9.4-12.3); MONOCYTES ABSOLUTE AUTO 0.47 K/uL (0.00-0.80); MONOCYTES PERCENT AUTO 4.1 % (0.0-8.0); NEUTROPHILS ABSOLUTE AUTO 7.89 K/uL (1.80-7.70); NEUTROPHILS PERCENT AUTO 68.1 % (41.0-71.0); PLATELET COUNT,PLT 415 K/uL (150-400); RED BLOOD CELL COUNT 4.55 M/uL (4.10-5.30); WHITE BLOOD CELL COUNT,WBC 11.57 K/uL (3.9-11.3)
[2023-09-24 15:08] LABS: A/G RATIO 0.8 (0.9-1.6); ALBUMIN 3.3 g/dL (3.4-5.0); BILIRUBIN TOTAL 0.4 mg/dL (0.2-1.0); CARBON DIOXIDE,CO2 24.6 mmol/L (21.0-32.0); CREATININE 0.8 mg/dL (0.6-1.0); EST CRCL DRUG DOSING (CG) 86.64 mL/min; POTASSIUM,K 3.7 mmol/L (3.5-5.1); PROTEIN TOTAL,TP 7.4 g/dL (6.4-8.2)
[2023-09-24 15:10] LABS: MAGNESIUM 1.8 mg/dL (1.8-2.4)
[2023-09-24 15:22] LABS: CORONAVIRUS COVID-19 NAA NEGATIVE (NEGATIVE); INFLUENZA A NAA NEGATIVE (NEGATIVE); INFLUENZA B NAA NEGATIVE (NEGATIVE); RESPIRATORY SYNCYTIAL VIR NAA NEGATIVE (NEGATIVE)
[2023-09-24] MEDS ORDERED: Iopamidol 755 MG/ML 500 ML Multipack Bottle IVPUSH STA (15:37)
[2023-09-24 16:43] VITALS: BP 151/90; PULSE 77
== END 2023-09-24 16:42 | disposition home or self-care (01) ==
LOC: MW.ED 12:46
DX: R42 Dizziness and giddiness (principal); I10 Essential (primary) hypertension; K21.9 Gastro-esophageal reflux disease without esophagitis; E11.9 Type 2 diabetes mellitus without complications; Z79.84 Long term (current) use of oral hypoglycemic drugs; Z79.899 Other long term (current) drug therapy; Z91.048 Other nonmedicinal substance allergy status
CPT/HCPCS: 0241U; 36415; 70450; 70496; 70498; 71046; 80053; 81003; 83690; 83735; 84484; 84703; 85025; 93005; 96360; 99285; A9270; J3490; J7030; Q9967

== ENCOUNTER 2024-11-13 07:53 | Observation (INO) | payer BC ==
[~2024-11-13 07:53] MED LIST changes: +Albuterol 0.083% 2.5 MG/3 ML Neb Soln NEB PRN; +Bupivacaine 0.25% 30 ML SDV ONE; +Dexamethasone 4 MG/ML 5 ML MDV ONE; +Fluorescein 5 ML Vial ONE; +Furosemide 40 MG/4 ML VIAL ONE; +Ketorolac 30 MG/ML SDV ONE; -Lactated Ringers 1,000 ML IV SCH; +Lidocaine 2% 11 ML Jelly Filled Syringe ONE; +Lidocaine 2% 5 ML SDV ONE; +Magnesium Sulfate (4.06 MEQ/ML) 5 GM/10 ML SDV ONE; +Methylene Blue 50 MG/10 ML Ampule ONE; +Metoclopramide 10 MG/2 ML SDV IVPUSH PRN; +Morphine 2 MG/ML SYRINGE IVPUSH PRN; +Naloxone 0.4 MG/ML SDV IVPUSH PRN; +Ondansetron 4 MG/2 ML SDV ONE; +Phenylephrine HCl In 0.9% NaCl 1 MG/10 ML Syringe IVPUSH PRN; +Rocuronium Bromide 50 MG/5 ML Syringe ONE; +Scopalamine 1mg/3day Transdermal Patch ONE; +Scopalamine 1mg/3day Transdermal Patch TOP ONE; +Sodium Chloride 0.9% 20 ML ONE; +Sugammadex Sodium 200 MG/2 ML VIAL IV ONE; +dexmedeTOMIDine HCl 200 MCG/2 ML SDV ONE; +fentaNYL 100 MCG/2 ML SDV ONE; +fentaNYL 50 MCG/ML SDV IVPUSH PRN; +propofoL 1,000 MG/100 ML 200 ML ONE
[2024-11-13] MEDS: Lactated Ringers 1,000 ML IV SCH (08:30)
[2024-11-13] MEDS ORDERED: Ropivacaine 0.5% 5 MG/ML 30 ML SDV ONE (08:40)
[2024-11-13 08:41] LABS: HEMATOCRIT 38.9 % (37.0-47.0); HEMOGLOBIN 13.5 g/dL (12.0-16.0); MEAN CORPUSCULAR HGB CONC 34.7 g/dL (32.0-36.0); MEAN CORPUSCULAR VOLUME 86.4 fL (83.0-99.0); MEAN PLATELET VOLUME 8.8 fL (9.4-12.3); PLATELET COUNT,PLT 425 K/uL (150-400); WHITE BLOOD CELL COUNT,WBC 11.18 K/uL (3.9-11.3)
[2024-11-13] MEDS ORDERED: Bupivacaine 0.25% 30 ML SDV ONE (08:53)
[2024-11-13 09:07] LABS: CALCIUM 9.1 mg/dL (8.5-10.1); CARBON DIOXIDE,CO2 23.8 mmol/L (21.0-32.0); CREATININE 0.8 mg/dL (0.6-1.0); EST CRCL DRUG DOSING (CG) 89.26 mL/min; POTASSIUM,K 4.2 mmol/L (3.5-5.1)
[2024-11-13] MEDS ORDERED: ceFAZolin 2 GM Vial ONE (09:09)
[2024-11-13] MEDS ORDERED: ceFAZolin 1 GM Vial ONE (09:25)
[2024-11-13] MEDS ORDERED: Ketamine HCL/NACL, ISO-OSM 50 MG/5 ML Syringe ONE (09:35)
[2024-11-13] MEDS ORDERED: Morphine 10 MG/ML SDV ONE (09:41)
[2024-11-13] MEDS ORDERED: Rocuronium Bromide 50 MG/5 ML Syringe ONE (10:09)
[2024-11-13] MEDS ORDERED: Sugammadex Sodium 200 MG/2 ML VIAL IV ONE (10:09)
[2024-11-13] MEDS ORDERED: Ketorolac 30 MG/ML SDV IVPUSH ONE (11:33)
[2024-11-13] MEDS ORDERED: 50% Dextrose in Water 50 ML Syringe IVPUSH PRN (11:33)
[2024-11-13] MEDS ORDERED: Ondansetron 4 MG/2 ML SDV IVPUSH PRN (11:33)
[2024-11-13] MEDS ORDERED: Glucagon,Human Recombinant 1 MG Vial IM PRN (11:33)
[2024-11-13] MEDS ORDERED: Promethazine 25 MG/ML SDV IM PRN (11:33)
[2024-11-13] MEDS ORDERED: Morphine 4 MG/ML Syringe IVPUSH PRN ×2 (11:33→18:33)
[2024-11-13] MEDS ORDERED: Lactated Ringers 1,000 ML IV SCH (11:45)
[2024-11-13] MEDS: HYDROmorphone 1 MG/ML Syringe IVPUSH PRN (12:00)
[2024-11-13] MEDS: Ondansetron 4 MG/2 ML SDV IVPUSH PRN (12:50)
[2024-11-13] MEDS: ceFAZolin 1 GM in Sodium Chloride 0.9% 50 ML IV SCH (15:17)
[2024-11-13] MEDS ORDERED: Ketorolac 30 MG/ML SDV IVPUSH PRN ×2 (17:00→18:33)
[2024-11-13] MEDS: Insulin Regular, Human 100 Units/ML 10 ML Vial SUBCUT SCH (17:17)
[2024-11-13] MEDS: Enoxaparin 40 MG/0.4 ML Syringe SUBCUT ONE (17:19)
[2024-11-13] MEDS: Acetaminophen/HYDROcodone 325-5 MG Tab PO PRN ×2 (18:40→22:22)
[2024-11-13] MEDS: Docusate Sodium 100 MG Cap PO SCH (21:12)
[2024-11-14 04:12] VITALS: PULSE 66
[2024-11-14 06:03] LABS: BASOPHILS ABSOLUTE AUTO 0.02 K/uL (0.00-0.20); BASOPHILS PERCENT AUTO 0.1 % (0.0-1.0); HEMATOCRIT 35.8 % (37.0-47.0); HEMOGLOBIN 12.3 g/dL (12.0-16.0); IMMATURE GRAN ABSOLUTE AUTO 0.05 K/uL (0.00-0.05); IMMATURE GRAN PERCENT AUTO 0.3 % (0.0-0.4); LYMPHOCYTES ABSOLUTE AUTO 3.02 K/uL (1.00-4.80); LYMPHOCYTES PERCENT AUTO 16.2 % (24.0-44.0); MEAN CORPUSCULAR HEMOGLOBIN 29.6 pg (28.0-32.0); MEAN CORPUSCULAR HGB CONC 34.4 g/dL (32.0-36.0); MEAN CORPUSCULAR VOLUME 86.3 fL (83.0-99.0); MEAN PLATELET VOLUME 8.8 fL (9.4-12.3); MONOCYTES ABSOLUTE AUTO 0.81 K/uL (0.00-0.80); MONOCYTES PERCENT AUTO 4.4 % (0.0-8.0); NEUTROPHILS ABSOLUTE AUTO 14.69 K/uL (1.80-7.70); PLATELET COUNT,PLT 438 K/uL (150-400); RED BLOOD CELL COUNT 4.15 M/uL (4.10-5.30); WHITE BLOOD CELL COUNT,WBC 18.59 K/uL (3.9-11.3)
[2024-11-14 06:27] LABS: CALCIUM 8.6 mg/dL (8.5-10.1); CARBON DIOXIDE,CO2 25.7 mmol/L (21.0-32.0); CREATININE 0.9 mg/dL (0.6-1.0); EST CRCL DRUG DOSING (CG) 79.34 mL/min
[2024-11-14 07:46] VITALS: BP 120/65
== END 2024-11-14 13:15 | disposition home or self-care (01) ==
LOC: MW.SDS 07:53 → MW.OB 13:54 → INTOOBSV 13:54
PROVIDERS: ADMIT Obstetrics & Gynecology; ATTEND Obstetrics & Gynecology
DX: D25.1 Intramural leiomyoma of uterus (principal); D25.2 Subserosal leiomyoma of uterus; L02.213 Cutaneous abscess of chest wall; E66.01 Morbid (severe) obesity due to excess calories; E11.9 Type 2 diabetes mellitus without complications; E78.5 Hyperlipidemia, unspecified; Z68.42 Body mass index [BMI] 45.0-49.9, adult; Z88.8 Allergy status to other drugs, medicaments and biological substances; Z91.09 Other allergy status, other than to drugs and biological substances; Z91.018 Allergy to other foods; Z88.5 Allergy status to narcotic agent; Z79.84 Long term (current) use of oral hypoglycemic drugs; Z79.899 Other long term (current) drug therapy
CPT/HCPCS: 10060; 36415; 58552; 64488; 80048; 82947; 84703; 85025; 85027; 86850; 86900; 86901; 87070; 87075; 87205; A9270; J0665; J0690; J1100; J1171; J1650; J1815; J1940; J2003; J2272; J2405; J2704; J2795; J3010; J3475; J7120; J1885; J3490

== ENCOUNTER 2025-04-12 18:37 | Emergency (ER) | payer BC ==
[2025-04-12] MEDS ORDERED: Sodium Chloride 0.9% 10 ML Syringe FLUSH PRN (18:43)
[2025-04-12] MEDS ORDERED: Sodium Chloride 0.9% 2.5 ML Syringe FLUSH PRN (18:43)
[2025-04-12 19:06] LABS: BASOPHILS ABSOLUTE AUTO 0.02 K/uL (0.00-0.20); BASOPHILS PERCENT AUTO 0.2 % (0.0-1.0); EOSINOPHILS ABSOLUTE AUTO 0.22 K/uL (0.00-0.45); EOSINOPHILS PERCENT AUTO 1.7 % (0.0-6.0); IMMATURE GRAN ABSOLUTE AUTO 0.03 K/uL (0.00-0.05); IMMATURE GRAN PERCENT AUTO 0.2 % (0.0-0.4); LYMPHOCYTES ABSOLUTE AUTO 4.50 K/uL (1.00-4.80); LYMPHOCYTES PERCENT AUTO 34.7 % (24.0-44.0); MEAN PLATELET VOLUME 8.9 fL (9.4-12.3); MONOCYTES ABSOLUTE AUTO 0.58 K/uL (0.00-0.80); MONOCYTES PERCENT AUTO 4.5 % (0.0-8.0); NEUTROPHILS ABSOLUTE AUTO 7.63 K/uL (1.80-7.70); NEUTROPHILS PERCENT AUTO 58.7 % (41.0-71.0); NRBC ABSOLUTE 0.00 K/uL (0.00-0.02); NRBC PERCENT 0.0 /100WBC (0.0-0.2); PLATELET COUNT,PLT 390 K/uL (150-400); RED BLOOD CELL COUNT 4.46 M/uL (4.10-5.30); WHITE BLOOD CELL COUNT,WBC 12.98 K/uL (3.9-11.3)
[2025-04-12 19:18] LABS: INR 1.03 (0.86-1.11)
[2025-04-12 19:39] LABS: A/G RATIO 0.9 (0.9-1.6); ALANINE AMINOTRANSFERASE,ALT 63.0 IU/L (14-63); ASPARTATE AMNIOTRANSFERASE,AST 37.0 IU/L (15-37); BILIRUBIN TOTAL 0.7 mg/dL (0.2-1.0); BLOOD UREA NITROGEN,BUN 7.0 mg/dL (7.0-18.0); CARBON DIOXIDE,CO2 26.8 mmol/L (21.0-32.0); CHLORIDE,CL 104.0 mmol/L (98-107); CREATININE 0.9 mg/dL (0.6-1.0); EST CRCL DRUG DOSING (CG) 78.56 mL/min; ESTIMATED GFR 83.0 mL/min (>60); GLUCOSE RANDOM 137.0 mg/dL (74-106); POTASSIUM,K 3.9 mmol/L (3.5-5.1); PRO B-TYPE NATRIUR PEPT,BNPPRO 23.0 pg/mL (0-125); PROTEIN TOTAL,TP 7.5 g/dL (6.4-8.2); SODIUM,NA 142.0 mmol/L (136-145); TSH ULTRASENSITIVE 2.4 uIU/mL (0.36-3.74)
[2025-04-12 19:46] LABS: APPEARANCE,URINE CLEAR; GLUCOSE,URINE NEGATIVE (NEGATIVE); OCCULT BLOOD,URINE NEGATIVE (NEGATIVE)
[2025-04-12 20:36] VITALS: BP 115/80; PULSE 79
== END 2025-04-12 20:36 | disposition home or self-care (01) ==
LOC: MW.ED 18:37
DX: R07.89 Other chest pain (principal); I10 Essential (primary) hypertension; E78.00 Pure hypercholesterolemia, unspecified; J45.909 Unspecified asthma, uncomplicated; K21.9 Gastro-esophageal reflux disease without esophagitis; E11.9 Type 2 diabetes mellitus without complications; E66.9 Obesity, unspecified; Z68.42 Body mass index [BMI] 45.0-49.9, adult; Z88.5 Allergy status to narcotic agent; Z88.8 Allergy status to other drugs, medicaments and biological substances; Z91.018 Allergy to other foods; Z91.048 Other nonmedicinal substance allergy status; Z79.84 Long term (current) use of oral hypoglycemic drugs; Z79.82 Long term (current) use of aspirin; Z79.51 Long term (current) use of inhaled steroids; Z79.899 Other long term (current) drug therapy
CPT/HCPCS: 36415; 71045; 80053; 81003; 81025; 83735; 83880; 84443; 84484; 85025; 85379; 85610; 93005; 96360; 99285; J7030; 93010; 99283